=== PATIENT | female | born 1965 | race Caucasian/White ===

== ENCOUNTER 2019-04-14 17:44 | Emergency (ER) | payer OTHER ==
[2019-04-14] MEDS ORDERED: KETOROLAC 30 MG/ML VIAL IVP ONE (18:21)
--- NOTE | 2019-04-14 18:27 | Emergency Department Record ---
History of Present Illness - General Chief complaint: Dental Stated complaint: DRY SOCKET,PAIN LT ABD Time Seen by Provider: 04/14/19 18:21 Source: Patient Mode of Arrival: Ambulatory Limitations: No limitations - History of Present Illness Initial comments: 53 yo female presents to ED for evaluation of "dry socket" following a dental extraction to the left lower mandible 2 weeks ago. Patient reports that her oral surgeon (Dr. De Leon) started the patient on Clindamycin, patient has been taking Motrin and Tylenol for her pain symptoms. As a result, patient is also complaining about abdominal pain, is concerned that her pancreatitis may have returned. Patient reports that she is s/p cholecystectomy, denies fevers, chills, or recent illness. MD complaint: Tooth pain, Other (Abdominal pain) Onset/Timin -: Days(s) Location: Tooth # Quality: Aching Consistency: Constant Improves with: None Worsens with: None - Related Data Home Medications Medication Instructions Recorded Confirmed Last Taken Acetaminophen [Tylenol 500Mg Tab] 500 mg PO Q6H 04/14/19 04/14/19 Unknown Clindamycin HCl 300 mg PO Q6H 04/14/19 04/14/19 Unknown Clonazepam [Klonopin] 1 mg PO QID 04/14/19 04/14/19 Unknown Duloxetine HCl [Cymbalta] 30 mg PO DAILY 04/14/19 04/14/19 Unknown Gabapentin [Neurontin] 1,200 mg PO TID 04/14/19 04/14/19 Unknown Glipizide 5 mg PO ASDIR 04/14/19 04/14/19 Unknown Ibuprofen 800 mg PO ASDIR 04/14/19 04/14/19 Unknown Levothyroxine Sodium 50 mcg PO DAILY 04/14/19 04/14/19 Unknown Lurasidone HCl [Latuda] 20 mg PO DAILY 04/14/19 04/14/19 Unknown Metformin HCl 1 tab PO TID 04/14/19 04/14/19 Unknown Prazosin HCl 1 mg PO QHS 04/14/19 04/14/19 Unknown Spironolactone 25 mg PO DAILY 04/14/19 04/14/19 Unknown Previous Rx's Medication Instructions Recorded Pantoprazole Sodium [Protonix] 40 mg PO DAILY #30 tablet. 04/14/19 Allergies Allergy/AdvReac Type Severity Reaction Status Date / Time Penicillins Allergy HIVES Verified 04/14/19 18:14 meperidine [From Demerol] AdvReac VOMITING Verified 04/14/19 18:14 and violent morphine AdvReac vomiting Verified 04/14/19 18:14 and violent tramadol AdvReac seritonin Verified 04/14/19 18:14 syndrome Travel Screening - Travel/Exposure Within Last 30 Days Have you traveled within the last 30 days?: No Review of Systems Constitutional: Denies: Chills, Fever, Malaise, Night sweats Eyes: Denies: Eye discharge, Eye pain ENT: Reports: Dental pain. Denies: Congestion, Ear pain Respiratory: Denies: Cough, Dyspnea Cardiovascular: Denies: Chest pain, Dyspnea on exertion Endocrine: Denies: Fatigue, Heat or cold intolerance Gastrointestinal: Reports: Abdominal pain. Denies: Nausea, Vomiting Genitourinary: Denies: Incontinence, Retention Musculoskeletal: Denies: Arthralgia, Back pain Skin: Denies: Bruising, Change in color Neurological: Denies: Abnormal gait, Confusion, Headache, Tingling, Tremors Psychiatric: Denies: Anxiety Hematological/Lymphatic: Denies: Anemia, Blood Clots Past Medical History - SOCIAL HISTORY Smoking Status: Never smoker Alcohol Use: None Drug Use: None - RESPIRATORY Hx Respiratory Disorders: No - CARDIOVASCULAR Hx Cardio Disorders: Yes Hx Hypertension: Yes - NEURO Hx Neuro Disorders: No - GI Hx GI Disorders: Yes Hx Abdominal Pain: Yes Hx Pancreatitis: Yes - Hx Genitourinary Disorders: No - ENDOCRINE Hx Endocrine Disorders: Yes Hx Diabetes: Yes Hx Thyroid Disease: Yes - MUSCULOSKELETAL Hx Musculoskeletal Disorders: No - PSYCH Hx Psych Problems: Yes Hx Anxiety: Yes Hx Depression: Yes Comment:: bipolar, pt has history of cutting wrists - HEMATOLOGY/ONCOLOGY Hx Hematology/Oncology Disorders: No Family Medical History Any Significant Family History?: No Physical Exam - General General Appearance: Alert, Oriented x3, Cooperative, No acute distress, Other (Flat affect on examination) Limitations: No limitations - Head Head exam: Atraumatic, Normocephalic, Normal inspection Head exam detail: negative: Abrasion, Contusion, Grover's sign, General tenderness, Hematoma, Laceration - Eye Eye exam: Normal appearance. negative: Conjunctival injection, Periorbital swelling, Periorbital tenderness, Scleral icterus - ENT Ear exam: negative: Auricular hematoma, Auricular trauma Nasal Exam: negative: Active bleeding, Discharge, Dried blood, Foreign body Mouth exam: negative: Drooling, Laceration, Muffled voice, Tongue elevation - Neck Neck exam: Normal inspection. negative: Meningismus, Tenderness - Respiratory Respiratory exam: Normal lung sounds bilaterally. negative: Respiratory distress, Rhonchi, Stridor, Wheezes - Cardiovascular Cardiovascular Exam: Regular rate, Normal rhythm, Normal heart sounds - GI/Abdominal GI/Abdominal exam: Soft, Tenderness (Mild TTP epigastric region on examination, no rebound, guarding, or peritoneal signs are present on examination.). negative: Rebound, Rigid - Rectal Rectal exam: Deferred - exam: Deferred - Extremities Extremities exam: Normal inspection. negative: Pedal edema, Tenderness - Back Back exam: Denies: CVA tenderness (R), CVA tenderness (L) - Neurological Neurological exam: Alert, Normal gait, Oriented X3 - Psychiatric Psychiatric exam: Flat affect - Skin Skin exam: Normal color. negative: Abrasion Type of lesion: negative: abrasion Course Vital Signs 04/14/19 18:10 Temperature 99.1 F Pulse Rate 99 H Respiratory 20 Rate Blood Pressure 140/96 Pulse Ox 99 - Reevaluation(s) Reevaluation #1: 04/14/19 19:07 Patient's laboratory studies were reviewed and appear grossly unremarkable for an acute process except for the following: Hgb 9.7 AST 52 ALT 45 Lipase 66 Patient was updated on all results. reports that her dental pain symptoms are improved following Toradol, reports that her epigastric pain symptoms are still present. GI cocktail was administered, and the patient appears stable for discharge at this time. Medical Decision Making - Lab Data Result diagrams: 04/14/19 18:30 04/14/19 18:30 Disposition Disposition: Discharge Clinical Impression: Dry socket Abdominal pain Qualifiers: Abdominal location: epigastric Qualified Code(s): R10.13 - Epigastric pain Disposition: Home, Self-Care Condition: (2) Stable Instructions: Abdominal Pain (ED) Additional Instructions: Return to ED if your symptoms worsen or if you have any concerns. Continue Clindamycin as prescribed. Protonix as directed. Follow-up with your dentist in 1-3 days. Follow-up with your family doctor in 3-5 days. Prescriptions: Pantoprazole Sodium [Protonix] 40 mg PO DAILY #30 tablet.dr Forms: Patient Portal Access Time of Disposition: 19:09 Quality - Quality Measures Quality Measures: N/A - Blood Pressure Screening Does Patient Have Any of the Following: No Blood Pressure Classification: Hypertensive Reading Systolic Measurement: 140 Diastolic Measurement: 96 Screening for High Blood Pressure: < First Hypertensive BP, F/U Documented > [[id number]] First Hypertensive Follow-up Interventions: Referral to alternative/primary care provider.
[2019-04-14] MEDS ORDERED: 0.9 % SODIUM CHLORIDE 1000ML 1,000 ML IV SCH (18:30)
[2019-04-14 18:46] LABS: ABSOLUTE NEUTROPHIL COUNT 5.24; BASO % 0.9 % (0-6); EOS % 7.7 % (0-6); GRAN % 47.3 % (47-80); HEMATOCRIT 32.2 % (35.0-47.0); HEMOGLOBIN 9.7 gm/dl (11.6-16.0); LYMPH % 36.9 % (16-45); MEAN CELL VOLUME 73.3 fl (81-97); MEAN CORPUSCULAR HGB CONC 30.1 g/dl (32-36); MEAN PLATELET VOLUME 10.1 fl (7.4-10.4); MONO % 7.2 % (0-9); PLATELET COUNT 570 K/uL (130-400); RED BLOOD COUNT 4.39 M/uL (3.80-5.40); RED CELL DISTRIBUTION WIDTH 19.5 % (11.5-14.5); WHITE BLOOD COUNT W/O DIFF 11.1 K/uL (4.2-12.2)
[2019-04-14 18:59] LABS: BILIRUBIN,TOTAL < 0.20 mg/dL (0.2-1.0); BLOOD UREA NITROGEN 11 mg/dL (6-20); CREATININE 0.9 mg/dL (0.5-0.9); EST GLOMERULAR FILTRATION RATE > 60 mL/min; LIPASE 66 U/L (13-60); TOTAL PROTEIN 7.1 g/dL (6.6-8.7)
[2019-04-14 19:01] LABS: GLUCOSE,RANDOM 114 mg/dL (74-109)
[2019-04-14 19:04] LABS: ALB/GLOB RATIO 1.6 (1.1-1.8); ALBUMIN 4.4 g/dL (4.0-5.0); ALKALINE PHOSPHATASE 103 U/L (35-104); ALT/SGPT 45 U/L (<33); AST/SGOT 52 U/L (10.0-35.0)
[2019-04-14] MEDS ORDERED: MAGNESIUM HYDROXIDE/AL HYDROX 30 ML, LIDOCAINE VISC 2% 15ML 15 ML PO ONE ×2 (19:06)
== END 2019-04-14 19:29 | disposition home or self-care (01) ==
LOC: ER 17:44
DX: R10.13 Epigastric pain (principal); K08.89 Other specified disorders of teeth and supporting structures; F31.89 Other bipolar disorder; E03.9 Hypothyroidism, unspecified; E11.9 Type 2 diabetes mellitus without complications; I10 Essential (primary) hypertension
CPT/HCPCS: 99284; 96374; 99283; 83690; 85025; 80053; J1885; J7030